=== PATIENT | male | born 1955 | race Caucasian/White ===

== ENCOUNTER 2022-07-27 08:27 | Day surgery (SDC) | payer MEDICARE, BC ==
[~2022-07-27 08:27] MED LIST: Lactated Ringers 1,000 ML IV SCH; Sodium Chloride 0.9% 10 ML Syringe FLUSH PRN
[2022-07-27] MEDS ORDERED: fentaNYL 100 MCG/2 ML SDV IV ONE (08:28)
[2022-07-27] MEDS ORDERED: Midazolam 1 MG/ML 2 ML SDV IV ONE (08:28)
[2022-07-27] MEDS ORDERED: acetaZOLAMIDE 500 MG Cap.ER PO ONE (10:30)
[2022-07-27 10:40] VITALS: BP 117/72; PULSE 61
== END 2022-07-27 10:34 | disposition home or self-care (01) ==
LOC: FB.SDS 08:27
PROVIDERS: ATTEND Ophthalmology
DX: H25.813 Combined forms of age-related cataract, bilateral (principal); H40.023 Open angle with borderline findings, high risk, bilateral; H43.811 Vitreous degeneration, right eye; H52.13 Myopia, bilateral; I11.0 Hypertensive heart disease with heart failure; I50.22 Chronic systolic (congestive) heart failure; E78.5 Hyperlipidemia, unspecified; I48.0 Paroxysmal atrial fibrillation; E03.9 Hypothyroidism, unspecified; G47.33 Obstructive sleep apnea (adult) (pediatric); Z79.899 Other long term (current) drug therapy; Z79.890 Hormone replacement therapy; Z88.8 Allergy status to other drugs, medicaments and biological substances; Z98.890 Other specified postprocedural states
CPT/HCPCS: 00142-QZ; A9270-GY; J2250; J3010; V2632

== ENCOUNTER 2022-08-17 09:09 | Day surgery (SDC) | payer MEDICARE, BC ==
[2022-08-17] MEDS ORDERED: Midazolam 1 MG/ML 2 ML SDV IV ONE (09:10)
[2022-08-17] MEDS ORDERED: fentaNYL 100 MCG/2 ML SDV IV ONE (09:10)
[2022-08-17] MEDS ORDERED: Sodium Chloride 0.9% 10 ML Syringe FLUSH PRN (09:30)
[2022-08-17] MEDS ORDERED: Lactated Ringers 1,000 ML IV PRN (09:30)
[2022-08-17] MEDS ORDERED: acetaZOLAMIDE 500 MG Cap.ER PO ONE (11:30)
[2022-08-17 12:38] VITALS: BP 123/83; PULSE 57
== END 2022-08-17 11:30 | disposition home or self-care (01) ==
LOC: FB.SDS 09:09
PROVIDERS: ATTEND Ophthalmology
DX: H02.813 Retained foreign body in right eye, unspecified eyelid (principal); H40.023 Open angle with borderline findings, high risk, bilateral; H43.811 Vitreous degeneration, right eye; H52.13 Myopia, bilateral; I10 Essential (primary) hypertension; I48.91 Unspecified atrial fibrillation; Z96.1 Presence of intraocular lens; Z79.899 Other long term (current) drug therapy; Z88.8 Allergy status to other drugs, medicaments and biological substances
CPT/HCPCS: 00142-QZ; A9270-GY; J2250; J3010; J3490; V2632